=== PATIENT | female | born 1945 | race African-American/Black ===

== ENCOUNTER 2020-08-05 10:46 | Outpatient (CLI) | payer MEDICARE ==
[2020-08-06 05:28] LABS: SARS-CoV-2 PCR by NAA Not Detected (NotDetected)
== END 2020-08-05 10:47 | disposition home or self-care (01) ==
LOC: LABBT 10:46
PROVIDERS: ATTEND Specialist
DX: Z01.812 Encounter for preprocedural laboratory examination (principal); K44.9 Diaphragmatic hernia without obstruction or gangrene; Z20.822 Contact with and (suspected) exposure to COVID-19
CPT/HCPCS: U0003; U0005; 87635

== ENCOUNTER 2020-08-09 09:40 | Outpatient (CLI) | payer MEDICARE ==
--- NOTE | 2020-08-09 11:19 | RAD ---
Upper GI: 08/09/2020 HISTORY: Reevaluate hiatal hernia FINDINGS: The soft work wrapper examiner imaging demonstrates a nonobstructed bowel gas pattern. There is rounded soft tis delroy density overlying the diaphragmatic hiatus on the soft work wrapper examiner imaging consistent with the patient's hiatal hernia. A double contrast barium esophagram was performed. With the patient standing, initial imaging demonstrates filling of the distal esophagus and contrast extending into the stomach without delay. The hiatal hernia does not opacify with contrast media while the patient is standing. When the patient was placed in the prone position a moderate hiatal he rnia is opacified. The gastroesophageal junction is above the level of the diaphragmatic hiatus and thus, the moderate-sized hiatal hernia demonstrates a sliding configuration with the gastric fundus a nd a portion of the gastric body extending into the chest. There is no delay of contrast media extending into the stomach. The stomach empties normally with a grossly unremarkable appearance of the gastric rugal fold pattern , the gastric antrum, and the duodenal bulb. Exposure data: 1.8 minutes of fluoroscopic time, 52.38 mg/sq cm IMPRESSION: Moderate sized sliding-type hiatal hernia.
== END 2020-08-09 09:41 | disposition home or self-care (01) ==
LOC: RAD 09:40
PROVIDERS: ATTEND Specialist
DX: K44.9 Diaphragmatic hernia without obstruction or gangrene (principal)
CPT/HCPCS: 74246

== ENCOUNTER 2021-05-15 13:02 | Outpatient (CLI) | payer MEDICARE ==
[2021-05-15 15:10] LABS: Anion Gap 15 mmol/L (10-20); BUN (Urea Nitrogen) 11 mg/dL (9.8-20.1); Calc. Creatinine Clearance 0 mL/min (70-130); Calcium 9.2 mg/dL (7.8-10.44); Carbon Dioxide 27 mmol/L (23-31); Chloride 105 mmol/L (98-107); Glucose 91 mg/dL (83-110); Potassium 4.1 mmol/L (3.5-5.1); Sodium 143 mmol/L (136-145)
[2021-05-16 11:54] LABS: SARS-CoV-2 PCR by NAA Not Detected (NotDetected)
== END 2021-05-15 13:03 | disposition home or self-care (01) ==
LOC: LABBT 13:02
PROVIDERS: ATTEND Specialist
DX: Z01.818 Encounter for other preprocedural examination (principal); K44.9 Diaphragmatic hernia without obstruction or gangrene; C18.7 Malignant neoplasm of sigmoid colon; Z20.822 Contact with and (suspected) exposure to COVID-19
CPT/HCPCS: 80048; 93005; U0003; U0005; 93010

== ENCOUNTER 2021-05-20 09:27 | Inpatient (IN) | payer MEDICARE ==
[2021-05-19 11:07] VITALS: BMI 33.6
[2021-05-20] MEDS ORDERED: Lidocaine 1% w/Epinephrine 1:100K 20 ML VIAL ONE (09:55)
[2021-05-20] MEDS ORDERED: Bupivacaine 0.25% HCL 30 ML VIAL ONE (09:55)
[2021-05-20] MEDS ORDERED: Acetaminophen 500 MG TAB ONE (10:06)
[2021-05-20] MEDS ORDERED: Ketorolac Tromethamine 30 MG/ML VIAL ONE (10:06)
[2021-05-20] MEDS ORDERED: ceFAZolin Sodium (SDC) 2 GM/100 ML BAG ONE (10:06)
[2021-05-20 10:44] LABS: #Eosinphils 0.4 thou/uL (0.0-0.7); #Lymphocytes 1.8 thou/uL (1.20-3.40); #Monocytes 0.6 thou/uL (0.11-0.59); #Neutrophils 3.6 thou/uL (1.40-6.50); %Basophils 0.1 % (0.0-1.0); %Eosinophils 5.5 % (0.0-10.0); %Lymphocytes 28.6 % (21.0-51.0); %Monocytes 9.1 % (0.0-10.0); %Neutrophils 56.7 % (42.0-75.0); Hemoglobin 13.9 g/dL (12.0-16.0); Mean Corpuscular HGB CONC 31.5 g/dL (32.0-36.0); Mean Corpuscular Hemoglobin 29.2 pg (27.0-31.0); Mean Corpuscular Volume 92.6 fL (78.0-98.0); Mean Platelet Volume 9.7 fL (7.4-10.4); Platelet Count 189 thou/uL (130-400); RBC Distribution Width 13.2 % (11.5-14.5); Red Blood Cell (RBC) Count 4.76 mill/uL (4.20-5.40); White Blood Cell (WBC) Count 6.4 thou/uL (4.8-10.8)
[2021-05-20] MEDS ORDERED: Lidocaine 2% Jelly 5 ML TUBE ONE (11:23)
[2021-05-20] MEDS ORDERED: Fentanyl 250 MCG/5 ML VIAL ONE (11:23)
[2021-05-20] MEDS ORDERED: Ondansetron PF 4 MG/2 ML Vial ONE (11:49)
[2021-05-20] MEDS ORDERED: ePHEDrine 50 MG/ML VIAL ONE (11:49)
[2021-05-20] MEDS ORDERED: Dexamethasone 20 MG/5 ML VIAL ONE (11:49)
[2021-05-20] MEDS ORDERED: Lidocaine 1% PF 5 ML VIAL ONE (11:49)
[2021-05-20] MEDS ORDERED: Glycopyrrolate 0.2 MG/ML 5 ML SYRINGE ONE (11:49)
[2021-05-20] MEDS ORDERED: Rocuronium Bromide 10 MG/ML (10ML VIAL) ONE (11:49)
[2021-05-20] MEDS ORDERED: PROPOFOL 200 MG/20 ML VIAL ONE (11:49)
[2021-05-20] MEDS ORDERED: PHENYLEPHRINE-NS 100 MCG/ML 10 ML SYRINGE ONE (11:49)
[2021-05-20] MEDS ORDERED: Promethazine HCl 25 MG/ML VIAL IM PRN ×2 (12:26→17:32)
[2021-05-20] MEDS ORDERED: Promethazine HCl 25 MG/ML VIAL IVPB PRN (12:26)
[2021-05-20] MEDS ORDERED: Ondansetron HCl/PF 4 MG/2 ML Vial IVP PRN (12:26)
[2021-05-20] MEDS ORDERED: Fentanyl 100 MCG/2 ML VIAL ONE ×2 (14:44→15:52)
[2021-05-20] MEDS ORDERED: hydrALAZINE 20 MG/ML VIAL SLOW IVP PRN (17:32)
[2021-05-20] MEDS ORDERED: Insulin Regular 300 UNITS/3 ML VIAL SC PRN (17:32)
[2021-05-20] MEDS ORDERED: Ondansetron PF 4 MG/2 ML Vial IVP PRN (17:32)
[2021-05-20] MEDS ORDERED: Morphine 4 MG/ML VIAL SLOW IVP PRN (18:07)
[2021-05-20] MEDS: Ketorolac Tromethamine 30 MG/ML VIAL IVP SCH ×2 (18:47→23:35)
[2021-05-20] MEDS: Sodium Chloride 0.9% 1,000 ML IV SCH (19:00)
[2021-05-20] MEDS: Famotidine/PF 20 mg/2ml Vial SLOW IVP SCH (19:56)
[2021-05-20] MEDS: Morphine 4 MG/ML VIAL SLOW IVP PRN (19:58)
[2021-05-20] MEDS: Gabapentin 300 MG CAP PO SCH (20:03)
[2021-05-20] MEDS: Famotidine 20 MG TAB PO SCH (20:04)
[2021-05-20] MEDS: metFORMIN 500 MG TAB PO SCH (20:04)
[2021-05-20] MEDS ORDERED: Atorvastatin Calcium 20 MG TAB PO SCH (21:00)
[2021-05-21] MEDS: Sodium Chloride 0.9% 1,000 ML IV SCH (03:15)
[2021-05-21] MEDS: Morphine 4 MG/ML VIAL SLOW IVP PRN ×3 (03:16→11:18)
[2021-05-21] MEDS: Ketorolac Tromethamine 30 MG/ML VIAL IVP SCH ×2 (06:04→15:11)
[2021-05-21 06:17] LABS: #Lymphocytes 1.1 thou/uL (1.20-3.40); #Monocytes 0.7 thou/uL (0.11-0.59); %Basophils 0.2 % (0.0-1.0); %Eosinophils 0.2 % (0.0-10.0); %Lymphocytes 14.2 % (21.0-51.0); %Monocytes 8.3 % (0.0-10.0); %Neutrophils 77.1 % (42.0-75.0); Mean Corpuscular HGB CONC 31.2 g/dL (32.0-36.0); Mean Corpuscular Hemoglobin 29.2 pg (27.0-31.0); Mean Corpuscular Volume 93.8 fL (78.0-98.0); Mean Platelet Volume 9.5 fL (7.4-10.4); Platelet Count 171 thou/uL (130-400); Red Blood Cell (RBC) Count 4.09 mill/uL (4.20-5.40); White Blood Cell (WBC) Count 7.8 thou/uL (4.8-10.8)
[2021-05-21] MEDS ORDERED: Levothyroxine Sodium 50 MCG TAB PO SCH (06:30)
[2021-05-21 06:34] LABS: Anion Gap 13 mmol/L (10-20); BUN (Urea Nitrogen) 10 mg/dL (9.8-20.1); Calc. Creatinine Clearance 142 mL/min (70-130); Calcium 8.9 mg/dL (7.8-10.44); Carbon Dioxide 22 mmol/L (23-31); Chloride 107 mmol/L (98-107); Glucose 98 mg/dL (83-110); Sodium 138 mmol/L (136-145)
[2021-05-21] MEDS ORDERED: Sodium Chloride 0.9% 1,000 ML IV SCH (08:00)
[2021-05-21] MEDS: metFORMIN 500 MG TAB PO SCH (08:15)
[2021-05-21] MEDS: Gabapentin 300 MG CAP PO SCH ×2 (08:15→15:12)
[2021-05-21] MEDS: Famotidine 20 MG TAB PO SCH (08:17)
[2021-05-21] MEDS ORDERED: Losartan 25 MG TAB PO SCH (09:00)
[2021-05-21] MEDS ORDERED: Furosemide 40 MG TAB PO SCH (09:00)
[2021-05-21] MEDS ORDERED: Enoxaparin Sodium 40 MG/0.4 ML SYRINGE SC SCH (09:00)
[2021-05-21] MEDS ORDERED: FLU VACC QS2021-22(65YR UP)/PF 240 MCG/0.7 ML SYRINGE IM ONE (09:00)
[2021-05-21] MEDS ORDERED: Aspirin 81 mg Enteric Coated Tablet PO SCH (09:00)
[2021-05-21] MEDS ORDERED: Amlodipine 10 MG TAB PO SCH (09:00)
[2021-05-21] MEDS: Famotidine/PF 20 mg/2ml Vial SLOW IVP SCH (10:22)
[2021-05-21] MEDS ORDERED: HYDROcodone/Acetaminophen 7.5/325 mg Tablet PO PRN (15:11)
[2021-05-21 15:51] VITALS: BP 163/85; TEMP 98.1
== END 2021-05-21 18:00 | disposition home or self-care (01) | DRG 328 ==
LOC: SDC 09:27 → EDSTATUS 13:00 → SURG B 15:17
PROVIDERS: ADMIT Specialist; ATTEND Specialist
PROC: 0DV44ZZ Restriction of Esophagogastric Junction, Percutaneous Endoscopic Approach (ICD-10-PCS; principal; 2021-05-20)
PROC: 0DS64ZZ Reposition Stomach, Percutaneous Endoscopic Approach (ICD-10-PCS; 2021-05-20)
DX: K44.9 Diaphragmatic hernia without obstruction or gangrene (principal); E66.01 Morbid (severe) obesity due to excess calories; Z68.33 Body mass index [BMI] 33.0-33.9, adult
CPT/HCPCS: 36415; 80048; 85025; 90471; 90662; 90732; C1713; C1776; G0008; G0009; J0690; J1100; J1650; J1885; J2270; J2405; J2704; J3010; J3490; J7050; S0020; S0028